=== PATIENT | female | born 1995 | race Caucasian/White ===

== ENCOUNTER → 2017-06-13 | Outpatient (CLI) | payer BC | END | disposition home or self-care (01) | LOC: C.PAPS 15:43 | PROVIDERS: ATTEND Physician Assistant | DX: Z01.419 Encounter for gynecological examination (general) (routine) without abnormal findings (principal) ==

== ENCOUNTER → 2017-06-13 | Outpatient (CLI) | payer BC | END | disposition home or self-care (01) | LOC: C.LABSPEC 16:07 | PROVIDERS: ATTEND Physician Assistant | DX: Z01.419 Encounter for gynecological examination (general) (routine) without abnormal findings (principal) ==

== ENCOUNTER 2023-06-09 13:24 | Inpatient (IN) ==
[2023-06-09] MEDS ORDERED: LIDOCAINE 1% LOCAL 20 ML VIAL INFIL PRN (14:13)
[2023-06-09] MEDS: LACTATED RINGER'S 1,000 ML IV PRN (14:24)
[2023-06-09 14:39] LABS: Hematocrit (blood only) 37.7 % (37.0-47.0); Hemoglobin 12.2 g/dl (12.0-16.0); Mean Corpuscular Hemoglobin 26.6 pg (25.0-34.0); Mean Corpuscular Hgb Conc 32.4 g/dL (32.0-36.0); Mean Corpuscular Volume 82.3 fL (80.0-100.0); Mean Platelet Volume 10.7 fL (9.4-12.4); Platelet Count 211 K/uL (130-400); RDW Coefficient of Variation 16.3 % (11.5-14.5); RDW Standard Deviation 48.7 fL (36.4-46.3); Red Blood Count 4.58 M/uL (4.20-5.40); White Blood Count 11.95 K/ul (4.8-10.8)
--- NOTE | 2023-06-09 14:48 | Anesthesiology Consultation ---
Date of Service June 09, 2023 Assessment & Plan Chart Review Chart Review: Acceptable Risk for Surgery, Patient NOT seen in Pre Admission Testing and Acceptable Risk for Labor Epidural Consults Requested none ASA ASA2 Proposed Anesthesia Anesthesia Type: Labor Epidural and CSE History Height/Weight Height: 5 ft 5 in Weight: 104.326 kg Allergies Allergy/AdvReac Type Severity Reaction Status Date / Time cefaclor Allergy Unknown Unknown Verified 06/06/23 10:05 shellfish derived Allergy Unknown Unknown Verified 06/06/23 10:05 Medications Home Medications Medication Instructions Recorded Confirmed Last Taken prenat.vits,camila,[id number] 1 tab PO QAM 10/31/21 06/09/23 06/09/23 acetone (urine) test (Ketone Urine #50 ea 04/29/23 06/06/23 Unknown Test strips) blood sugar diagnostic (OneTouch #150 ea 04/29/23 06/06/23 Unknown Verio test strips) blood-glucose meter (OneTouch #1 ea 04/29/23 06/06/23 Unknown Verio Reflect Meter) lancets 33 gauge (OneTouch Delica #150 ea 04/29/23 06/06/23 Unknown Plus Lancet) ferrous sulfate PO 05/15/23 06/06/23 06/08/23 Active Medications Generic Name Dose Route Start Last Admin Trade Name Freq PRN Reason Stop Dose Admin Lactated Ringer's 1,000 mls @ 125 mls/hr 06/09/23 14:13 06/09/23 14:24 Lr IV 06/11/23 14:12 999 mls/hr .Q8H PRN Administration L&D Protocol Protocol Past Medical History Medical History Varicella vaccination IUFD at less than 20 weeks of gestation No acute medical problems Exercise / Class Metabolic Activity II 4-5 Yardwork/Stairs/Walk up hill Past Family History Family History Aunt Skin cancer Denies family history of Ovarian cancer Prostate cancer Breast cancer Colorectal cancer Past Surgical History Surgical History S/P dilatation and curettage H/O laparoscopy Past Anesthesia History No Hx of Anesthesia Complications and No Family Hx of Anesthesia Complications History of PONV No Hx of PONV and No Hx of Motion Sickness Social History Smoking Status: Never smoker Do You Dip or Chew Tobacco: No Hx Alcohol Use: No Alcohol type: wine alcohol intake frequency: a few times a month Hx Substance Use: No substance use type: does not use Physical Exam Vital Signs Last Vital Signs Temp 36.6 C 06/09/23 13:45 Pulse 77 06/09/23 14:43 Resp 20 06/09/23 13:45 BP 133/65 06/09/23 13:29 Pulse Ox 97 06/09/23 14:43 Testing Laboratory Results 06/09/23 14:25 06/09/23 14:32 POC Glucose 104 H
[2023-06-09] MEDS ORDERED: LIDOCAINE 2% MPF LOCAL 5 ML VIAL EPI PRN (15:29)
[2023-06-09] MEDS ORDERED: SODIUM CHLORIDE 0.9% PF INJ 10 ML VIAL EPI PRN (15:29)
[2023-06-09] MEDS ORDERED: NALBUPHINE HCL 5 MG in SYRINGE 0 ML IV PRN (15:29)
[2023-06-09] MEDS ORDERED: PROMETHAZINE HCL 6.25 MG in SODIUM CHLORIDE 0.9% 50 ML IV PRN (15:29)
[2023-06-09] MEDS ORDERED: fentaNYL citrate PF 100 MCG/2 ML VIAL EPI PRN (15:29)
[2023-06-09] MEDS ORDERED: diphenhydrAMINE 50 MG/ML VIAL IV PRN (15:29)
[2023-06-09] MEDS ORDERED: fentANYL 2 MCG/ML BUPIVacaine 0.125%-NSS 100ML BAG EPI PRN (15:29)
[2023-06-09] MEDS ORDERED: BUPIVACAINE 0.25% PF 30 ML VIAL EPI PRN (15:29)
[2023-06-09] MEDS ORDERED: ePHEDrine sulfate 50 MG/ML AMP IV PRN (15:29)
[2023-06-09] MEDS ORDERED: NALOXONE HCL 1 MG in SODIUM CHLORIDE 0.9% 1,000 ML IV PRN (15:29)
[2023-06-09] MEDS ORDERED: NALOXONE HCL 0.4 MG/1 ML VIAL/CARP IV PRN (15:29)
[2023-06-09] MEDS ORDERED: ROPIVACAINE 0.5% PF 5 MG/ML 20 ML VIAL EPI PRN (15:29)
[2023-06-09] MEDS ORDERED: ONDANSETRON INJ 2 MG/ML 2 ML VIAL IV PRN (15:29)
[2023-06-09] MEDS: fentANYL 2 MCG/ML BUPIVacaine 0.125%-NSS 100ML BAG ONE (15:36)
[2023-06-09] MEDS: BUPIVACAINE 0.25% PF 30 ML VIAL ONE (15:39)
[2023-06-09] MEDS: fentaNYL citrate PF 100 MCG/2 ML VIAL ONE (15:39)
[2023-06-09] MEDS: LIDOCAINE 2%/EPINEPHRINE 1:200,000 20 ML PF ONE (15:41)
[2023-06-09] MEDS: ePHEDrine sulfate 50 MG/ML AMP ONE (15:42)
[2023-06-09] MEDS: SODIUM CHLORIDE 0.9% PF INJ 10 ML VIAL ONE (15:42)
[2023-06-09] MEDS: BUPIVACAINE 0.25% PF 30 ML VIAL EPI STA (16:21)
[2023-06-09] MEDS: LIDOCAINE 2%/EPINEPHRINE 1:200,000 20 ML PF EPI STA (16:21)
[2023-06-09] MEDS: fentaNYL citrate PF 100 MCG/2 ML VIAL EPI STA (16:21)
[2023-06-09] MEDS: SODIUM CHLORIDE 0.9% PF INJ 10 ML VIAL EPI STA (16:22)
[2023-06-09] MEDS: OXYTOCIN 30 UNITS/NSS 30 UNITS/500 ML BAG IV PRN (19:49)
[2023-06-09] MEDS ORDERED: HYDROCORTISONE ACETATE 25 MG SUPP PR PRN (20:04)
[2023-06-09] MEDS ORDERED: OXYTOCIN 30 UNITS/NSS 30 UNITS/500 ML BAG IV PRN (20:04)
[2023-06-09] MEDS ORDERED: bisacodyL 10 MG SUPP PR PRN (20:04)
[2023-06-09] MEDS ORDERED: ACETAMINOPHEN 325 MG TAB PO PRN (20:04)
--- NOTE | 2023-06-09 20:08 | Delivery Summary ---
Vaginal Delivery Summary Date of Service June 09, 2023 Vaginal Delivery Summary and 2nd Degree LAC Progressed to 10 cm dilated 100% paced but intact perineum with epidural and delivered a viable with weight and Apgars pending. Had the delivered in DIONI position and transition to left transverse. No nuchal cord was noted. Body and shoulders quickly followed. was noted be vigorous upon delivery and a 1 minute delayed cord clamping was initiated. Cord was then double clamped and cut. remained on maternal abdomen. Cord blood obtained. Attention was then turned to delivery placenta was delivered intact with three-vessel cord gentle cord traction. Inspection of perineum vagina and cervix there is noted to be a second-degree perineal laceration which repaired with 3-0 Vicryl in traditional crown stitch. Needle sponge and instrument count s were correct at the completion of the case. Both mother and stable in the immediate postdelivery period. Estimated blood loss of 350 mL and no complications noted [facility] Vaginal Delivery Charge Delivery Type Details: and 2nd Degree LAC
[2023-06-09] MEDS: DIPHTHER/TETAN/PERTUS Vaccine (Tdap, Adol/Adult) 0.5mL IM ONE (20:57)
[2023-06-09] MEDS: IBUPROFEN 600 MG TAB PO PRN (21:01)
[2023-06-09] MEDS: BENZOCAINE 20% SPRY 85 APPLN/85 GM CAN EXT PRN (21:02)
[2023-06-09] MEDS: DOCUSATE SODIUM 100 MG CAP PO SCH (21:02)
--- NOTE | 2023-06-10 01:08 | Anesthesia Procedure Note ---
Date of Service June 10, 2023 Anesthesia Post Epidural Note Vital Signs Vital Signs: Temp Pulse Resp BP Pulse Ox 36.9 C 109 H 16 137/84 100 06/09/23 22:00 06/09/23 21:58 06/09/23 22:00 06/09/23 21:58 06/09/23 19:59 Pain Intensity Bilateral Abdomen: Pain Intensity: 8 Lower Back: Pain Intensity: 8 Episiotomy/Laceration: Pain Intensity: 2 Notes Mental Status: alert / awake / arousable Nausea / Vomiting: adequately controlled Pain: adequately controlled Airway Patency, RR, SpO2: stable & adequate BP & HR: stable & adequate Hydration State: stable & adequate Neuraxial Anesthesia: was administered and sensory block is resolving Anesthetic Complications: no major complications apparent and Pt Satisfied with anesthetic care Epidural: Removed without complications and With tip intact
--- NOTE | 2023-06-10 07:38 | Obstetrical Progress Note ---
Date of Service June 10, 2023 Assessment & Plan (1) Encounter for care and examination after delivery: Day 1 status post vaginal delivery. Patient doing well. Routine care Subjective Ambulation: ambulating normally Voiding: no voiding problems Passing Gas:: Yes Diet Tolerance:: regular diet Lochia:: Moderate Feeding Type:: breast feeding Physical Exam Constitutional WD/WN, vitals as above Respiratory normal respiratory effort; no respiratory distress and no labored breathing Gastrointestinal (Abdomen) Inspection/Auscultation: abdomen normal to inspection; abdomen not distended Percussion/Palpation: abdomen soft; abdomen nontender, no guarding and abdomen not rigid Genitourinary OB Exam Abdomen: + fundal height Fundus: + firm and + relation to umbilicus (Below); not tender or not boggy Results & Data Vital Signs (Past 12 Hours) Vital Signs Temp Pulse Pulse Resp BP BP Pulse Ox 06/10/23 02:45 36.7 C 98 H 18 120/73 98 06/09/23 22:10 36.8 C 98 H 18 130/78 99 06/09/23 22:00 36.9 C 16 06/09/23 21:58 109 H 06/09/23 21:58 137/84 06/09/23 21:44 160 H 06/09/23 21:44 137/59 L 06/09/23 21:30 18 06/09/23 21:29 119/64 06/09/23 21:14 105 H 06/09/23 21:14 128/64 06/09/23 21:00 16 06/09/23 20:59 108 H 06/09/23 20:59 122/65 06/09/23 20:44 18 06/09/23 20:44 109 H 06/09/23 20:44 128/59 L 06/09/23 20:29 16 06/09/23 20:29 100 H 06/09/23 20:29 121/65 06/09/23 20:14 16 06/09/23 20:14 104 H 06/09/23 20:14 115/62 06/09/23 20:00 36.8 C 18 06/09/23 20:00 116 H 06/09/23 20:00 135/94 06/09/23 19:59 100 06/09/23 19:59 115 H 06/09/23 19:54 99 03/03/24 19:54 122 H 06/09/23 19:49 99 06/09/23 19:49 126 H 06/09/23 19:44 98 06/09/23 19:44 154 H 06/09/23 19:39 99 06/09/23 19:39 148 H O2 Del Method 06/10/23 02:45 Room Air 06/09/23 22:10 Room Air 06/09/23 22:00 06/09/23 21:58 06/09/23 21:58 06/09/23 21:44 06/09/23 21:44 06/09/23 21:30 06/09/23 21:29 06/09/23 21:14 06/09/23 21:14 06/09/23 21:00 06/09/23 20:59 06/09/23 20:59 06/09/23 20:44 06/09/23 20:44 06/09/23 20:44 06/09/23 20:29 06/09/23 20:29 06/09/23 20:29 06/09/23 20:14 06/09/23 20:14 06/09/23 20:14 06/09/23 20:00 06/09/23 20:00 06/09/23 20:00 06/09/23 19:59 06/09/23 19:59 06/09/23 19:54 06/09/23 19:54 06/09/23 19:49 06/09/23 19:49 06/09/23 19:44 06/09/23 19:44 06/09/23 19:39 06/09/23 19:39
[2023-06-10] MEDS: PRENATAL VITAMIN 1 TAB PO SCH (08:41)
[2023-06-10] MEDS: FERROUS SULFATE 325 MG TAB PO SCH (08:41)
[2023-06-10] MEDS: bisacodyL 5 MG TABEC PO SCH (20:48)
--- NOTE | 2023-06-11 08:09 | Obstetrical Progress Note ---
Date of Service <Ralph Enciso MD - Last Filed: 06/11/23 08:40> June 11, 2023 Assessment & Plan <Ralph Enciso MD - Last Filed: 06/11/23 08:40> (1) Normal labor: Plan 28 yo , status post w/ 2nd deg lac on 06/09/23 - Pt doing well clinically. Feels well today. Eating well, voiding well, ambulating well. Pain well controlled with PRN pain meds. - Routine care -- OOB, ambulation, diet progression as tolerated Vital Signs reviewed and WNL. (Tmax at 36.7) Hemoglobin Reviewed. 12.2 (06/09/23). Blood Type: A+, GBS-, Rubella Immune. Encourage ambulation, monitor and control pain with Motrin PRN, resume regular diet, monitor lochia. Breast feeding encouraged. Bottle feeding planned. After discharge will have 6 week follow-up with Dr. Crystal. Pt counselled on discharge instructions. <Salbador Gibbons MD, FACOG - Last Filed: 06/11/23 08:55> (1) Normal labor: Subjective <Ralph Enciso MD - Last Filed: 06/11/23 08:40> Ambulation: ambulating normally Voiding: no voiding problems Passing Gas:: Yes Diet Tolerance:: regular diet Lochia:: Small (decreasing each day) Feeding Type:: bottle feeding Current Pain Level(1-10): 3 (mostly lower back/ cramping in lower pelvic area) Constitutional: no fever, no chills, no sweats or no fatigue Respiratory: no cough, no chest congestion or no dyspnea Cardiovascular: + edema (in feet, improving); no chest pain, no palpitations or no calf pain Breast: no breast pain Gastrointestinal: + nausea (nausea but resolves once she eats) and + vomiting; no abdominal pain or no diarrhea/loose stools Genitourinary (female): + dysuria (secondary to lac) Physical Exam <Ralph Enciso MD - Last Filed: 06/11/23 08:40> Constitutional WD/WN, vitals as above Respiratory normal respiratory effort, lungs clear to auscultation Cardiovascular RRR, no murmur, no edema Extremities: + pedal edema (minor amount); no calf tenderness Gastrointestinal (Abdomen) Inspection/Auscultation: abdomen normal to inspection and normal bowel sounds Percussion/Palpation: + abdomen tender (diffusely tender, 3/10 soreness in epigastric area) Psychiatric A+Ox3, euthymic affect Results & Data <Ralph Enciso MD - Last Filed: 06/11/23 08:40> Vital Signs (Past 12 Hours) Vital Signs Temp Pulse Resp BP Pulse Ox O2 Del Method 06/10/23 23:26 36.6 C 94 H 18 126/70 97 Room Air Supervising Physician <Salbador Gibbons MD, FACOG - Last Filed: 06/11/23 08:55> Co-Signing Physician Notes Resident Physician Supervision Note: I was present with [Name of resident] during the history and exam. I discussed the case with the resident and agree with the findings and plan as documented in the note. Any exceptions or clarifications are listed here: [None] Documented By: Salbador Gibbons MD, FACOG
== END 2023-06-11 10:45 | disposition home or self-care (01) | DRG 807 ==
LOC: 4S1 13:24 → 4E2 22:15